=== PATIENT | female | born 1970 | race Caucasian/White ===

== ENCOUNTER 2024-12-22 15:08 | Outpatient (CLI) | payer BC, SELFPAY ==
--- NOTE | ~2024-12-22 | CT_ITS ---
Clinical indication: Pulmonary nodule COMPARISON:None TECHNIQUE: Multiple contiguous axial images of the chest were performed following the administration of intravenous contrast. DLP: 568 mGy-cm FINDINGS: LUNG:Interstitial thickening and consolidative change is identified within the medial margin of the r ight middle lobe. Query the site of patient's recent pneumonia. Peribronchial thickening in this area is also noted, along with multiple pulmonary nodules, likely in flammatory in origin. The largest measures 7.4 mm (axial image 54) and demonstrates angular margins. A second nodule measures 5.7 mm (axial image 57) demonstrating smooth margins and a rounded shape. Two pleural-based nodules are identified within the right upper lobe, each measuring 5 mm (axial imag e 20 and axial image 24). No additional suspicious pulmonary nodules are appreciated. MEDIASTINUM:No morphologically suspicious or pathologically enlarged lymph nodes within the mediastin um. HEART:The heart is of normal size, without pericardial effusion. SOFT TISSUES OF THE CHEST: Unremarkable BONES OF THE CHEST: No acute compression fracture. There are bridging endplate osteophytes at multiple levels in the spine, consistent with diffuse idio pathic skeletal hyperostosis (DISH). VISUALIZED PORTION OF THE UPPER ABDOMEN: Unremarkable IMPRESSION: Findings within the right middle lobe which may correspond to patient's previous pneumonia. Multiple pulmonary nodules (as detailed above), the largest measuring 7.4 mm, likely inflammatory in origin for which follow-up as per Fleischner guidelines is recommended, which recommends a CT in 3-6 months to confirm stability versus resolution. Reviewed, dictated and finalized at location A. BUILDER IMPRESSION: Findings within the right middle lobe which may correspond to patient's previou s pneumonia. Multiple pulmonary nodules (as detailed above), the largest measuring 7.4 mm, l ikely inflammatory in origin for which follow-up as per Fleischner guidelines i s recommended, which recommends a CT in 3-6 months to confirm stability versus resolution.
[2024-12-22 15:30] LABS: Estimated Glomerular Filt Rate > 60
== END 2024-12-22 15:09 | disposition home or self-care (01) ==
LOC: MICIMG 15:09
PROVIDERS: PCP Nurse Practitioner; Visit Provider Nurse Practitioner
DX: R93.89 Abnormal findings on diagnostic imaging of other specified body structures (principal)
CPT/HCPCS: 71260; Q9967

== ENCOUNTER 2025-03-13 15:45 | Outpatient (CLI) | payer BC, SELFPAY ==
--- NOTE | ~2025-03-13 | CT_ITS ---
CT Scan of the Chest without Contrast: Clinical Indication: Lung nodule Technique: Contiguous sections were acquired throughout the chest without intravenous contrast. Dose reduction technique was used on this scan by utilizing automated exposure control and iterative recon struction technique. The dose-length product (DLP) was 275.40 mGy-cm. COMPARISON: 12/22/2024 Findings: There is no evidence of any significant mediastinal, hilar or axillary lymphadenopathy. The mediastin al soft tissues appear normal. There is no evidence of pleural or pericardial effusion. Stable subcentimeter pleural-based nodules posteriorly the right lung apex. Stable chronic scarring w ith emphysematous change in the right lower lobe. There is focal bronchiectatic change centrally in t he right lower lobe is an irregular nodule opacities medially. Stable 4 mm nodules are present (axial image 50, 59). Additional patchy airspace disease in the right lower lobe on prior exam is otherwise significantly improved. Images through the upper abdomen reveal no abnormalities. Impression: Marked interval improvement in patchy airspace disease in the right lower lobe since prior exam. Mild residual postinflammatory scarring with several subcentimeter pulmonary nodules which are unchan ged, as above. Stable areas of bronchiectatic change in the right lower lobe. Emphysematous change particularly the right lower lobe. Reviewed, dictated and finalized at location . Impression: Marked interval improvement in patchy airspace disease in the right lower lobe since prior exam. Mild residual postinflammatory scarring with several subcentimeter pulmonary no dules which are unchanged, as above. Stable areas of bronchiectatic change in the right lower lobe. Emphysematous change particularly the right lower lobe.
== END 2025-03-13 15:46 | disposition home or self-care (01) ==
LOC: MICIMG 15:45
PROVIDERS: PCP Nurse Practitioner; Visit Provider Nurse Practitioner
DX: R91.8 Other nonspecific abnormal finding of lung field (principal)
CPT/HCPCS: 71250